=== PATIENT | female | born 2000 | race Two or more races ===

== ENCOUNTER 2023-04-28 20:38 | Emergency (ER) | payer OTHER ==
[~2023-04-28] VITALS: Ht 160 cm; Wt 87.9 kg
[2023-04-29] MEDS ORDERED: CEPH500C PO (03:59)
[2023-04-29 04:37] VITALS: BP 109/67; PULSE 76; RESP 18; TEMP 98
[2023-04-29 04:38] VITALS: O2SAT 98
== END 2023-04-29 04:45 | disposition home or self-care (01) ==
LOC: ER 20:38
DX: L03.311 Cellulitis of abdominal wall (principal); Z98.890 Other specified postprocedural states; Z79.899 Other long term (current) drug therapy

== ENCOUNTER 2023-09-14 18:52 | Emergency (ER) | payer OTHER ==
[~2023-09-14] VITALS: Ht 160 cm; Wt 89.9 kg
[~2023-09-14 18:52] MED LIST: CEPH500C PO
[2023-09-14] MEDS: IBUPROFEN 800 MG TAB PO ONE (20:40)
[2023-09-14 20:53] VITALS: BP 121/81; PULSE 71; RESP 18; TEMP 97.8; O2SAT 99
[2023-09-14] MEDS ORDERED: IBUP-1455 PO (21:01)
== END 2023-09-14 21:14 | disposition home or self-care (01) ==
LOC: ER 18:52
DX: S93.402A Sprain of unspecified ligament of left ankle, initial encounter (principal); W18.2XXA Fall in (into) shower or empty bathtub, initial encounter; Y93.89 Activity, other specified; Y92.89 Other specified places as the place of occurrence of the external cause; Y99.8 Other external cause status
CPT/HCPCS: 29125; 73610